=== PATIENT | male | born 2000 | race African-American/Black ===

== ENCOUNTER 2020-09-14 05:01 | Emergency (ER) | payer MEDICAID, SELFPAY ==
[2020-09-14 05:02] VITALS: BP 154/78; PULSE 71; RESP 16; TEMP 36.6; O2SAT 100; BMI 23.7
--- NOTE | 2020-09-14 05:09 | CT_ITS ---
STUDY: CT BRAIN WITHOUT CONTRAST REASON FOR EXAM: Male, 20 years old. headache RADIATION DOSAGE (If Supplied By Facility): CTDIvol = ( 44.99 ) mGy, DLP = ( 812.98 ) mGycm TECHNIQUE: Transaxial CT imaging of the brain was performed without administration of intravenous contrast material. Individualized dose optimization techniques were used for this CT. COMPARISON: No relevant priors. FINDINGS: Normal soft tissue structures. Normal calvarium. Normal size ventricles and extra-axial spaces for the patient''s age. Normal white matter tracts of the cerebral hemispheres. Normal basal ganglia and thalami. Normal brainstem. Normal cerebellum. There is no intracranial hemorrhage. There are no findings of an acute ischemic infarction. Normal visualized paranasal sinuses. CT/Brain/Head without Contrast IMPRESSION: Normal unenhanced CT scan of the brain. Electronically Signed: Dallin Watkins DO at 6:09 EST Tel , Service support ,
--- NOTE | 2020-09-14 05:11 | ED.VIS.GEN ---
History of Present Illness Chief Complaint: General Illness Informant: Patient Onset: Today Context: Gradual Onset Timing: Intermittent Current Severity: Moderate Maximum Severity: Moderate Narrative: Patient is a 20-year-old male who presents to the emergency department with headache and tingling. Patient states that he is on prescription Adderall. He states sometimes, he takes that he feels restless. He states he felt like he was very anxious and freaking out. He used CBD to help him calm down. He states he felt that this made it worse. He describes a palpable lump on the back of his skull. He states if he pushes it, he will get tingling in his legs. He states he is also been nauseated and has had a persistent headache. His history is hard to follow as he jumps from spot to spot. He is very upfront that he is not suicidal or homicidal. He denies any other drug use. Prior similar symptoms: No Recent Illness/Hospitalization: No Past Medical History Prior records reviewed: Yes Past Medical History: - - ADHD Surgical History: noncontributory Smoking Status: Never smoker Review of Systems General: Denies: Chills, Fever, Sweats Eyes: Denies: Visual changes - bilaterally, Diplopia ENT: Denies: Rhinorrhea, Sore throat Cardiovascular: Denies: Chest pain, Palpitations Respiratory: Denies: Dyspnea, Cough, Dyspnea on exertion Gastrointestinal: Denies: Abdominal pain, Nausea, Vomiting, Diarrhea, Melena, Hematochezia Genitourinary: Denies: Dysuria, Hematuria, Frequency Musculoskeletal: Denies: Back pain, Extremity Pain Skin: Denies: Rash, Wounds Neurological: Reports: Headache. Denies: Weakness, Numbness Psych: Reports: Anxiety Physical Exam Vital Signs/Narrative: Vital Signs Temp Pulse Resp BP Pulse Ox 09/14/20 05:02 97.8 F 71 16 154/78 H 100 Inital Vital Signs reviewed: Yes General: Well nourished, Well developed, No Acute Distress Head: Normocephalic, Atraumatic Eyes: Perrl, EOMI ENT: Moist mucous membranes, No rhinorrhea Neck: Supple, Nontender Cardiovascular: Regular rate, Regular rhythm, No murmurs Respiratory: No distress, CTA bilaterally, Chest nontender Abdomen: Soft, Nontender, Nondistended, Normal bowel sounds Back: Nontender, Normal Inspection Extremities: Nontender, No edema Skin: Normal color, No rash Neurological: Alert, Oriented x3, Cranial nerves II-XII grossly intact, Normal Strength, Normal Sensation Psychological: Normal affect, Normal Mood Diagnostic/Tx/Re-eval - Medical Decision Making The patient has been under significant amount of stress lately. He has a that is 6 days old. On top of that, he has been intermittently abusing his amphetamine prescription. He is not hallucinating. He is not suicidal or homicidal. I did want to rule out dangerous process with his headache. Although his neurologic exam was normal, I did obtain noncontrast CT of the brain. This was negative for acute process. Patient is observed and is resting comfortably. At this point, I do not suspect a dangerous process I do feel that he is safe for outpatient follow-up. Impression 1. Headache 2. Anxiety reaction ED Disposition - Plan for ED Patient: Instructions: ED Headache, Tension
[2020-09-14 06:29] VITALS: BP 142/76; PULSE 71; RESP 16; O2SAT 100
== END 2020-09-14 06:29 | disposition home or self-care (01) ==
PROVIDERS: Emergency Provider Emergency Medicine; PCP Family Medicine
DX: R51.9 Headache, unspecified (principal); F41.1 Generalized anxiety disorder; R20.2 Paresthesia of skin
CPT/HCPCS: 70450; 99282

== ENCOUNTER → 2021-04-04 09:54 | Outpatient (CLI) | payer MEDICAID, SELFPAY | PROVIDERS: PCP Family Medicine; Referring Provider Physician Assistant; Visit Provider Physician Assistant | DX: J02.9 Acute pharyngitis, unspecified (principal) | CPT/HCPCS: 87635; U0005; U0003 ==